=== PATIENT | male | born 1955 | race Caucasian/White ===

== ENCOUNTER 2017-09-23 11:51 | Day surgery (SDC) | payer OTHER ==
[~2017-09-23] VITALS: Ht 177.8 cm; Wt 88.6 kg
--- NOTE | ~2017-09-23 | OP ---
PATIENT NAME: MORIAH NGUYEN MEDICAL RECORD: [id number] :57 [facility] AD[facility] DATE: SURGEON: NIYAH CLEVELAND MD DATE OF OPERATION: 09/23/2017 REFERRING PHYSICIAN: Kt Pete MD INDICATIONS: Mr. Nguyen is a very pleasant 62-year-old gentleman, who has been having symptoms of diarrhea beginning in May 2017 and they have recently resolved. He had outpatient stool studies that were negative for salmonella, shigella, campylobacter, or E. coli. Recently, he had episode of black tarry stools followed by bright red blood per rectum and has likewise resolved. His hemoglobin today is 17.6, MCV is 89.8. He presents for outpatient EGD and colonoscopy. PREMEDICATIONS: Total IV anesthesia (propofol 250 mg) (history of coronary artery disease with coronary artery stent, congestive heart failure, obstructive sleep apnea). INSTRUMENT: Nextnav video gastroscope and Olympus video colonoscope. PROCEDURE AND FINDINGS: After receiving informed consent, Mr. Nguyen was first prepared for EGD. His posterior pharynx was anesthetized with Cetacaine spray, placed in left lateral decubitus position and sedated as per anesthesia. After achieving an adequate level of sedation, gastroscope was introduced per orally and advanced to the duodenum without difficulty. The esophageal mucosa was without erythema, ulcers, strictures, masses; appeared normal down the GE junction. A small hiatal hernia was present. Gastric mucosa was notable for mild prepyloric and antral erythema, and there were 4 small shallow punctate ulcers noted in the prepyloric and antral region of the stomach (nonhemorrhagic) and antral biopsies were obtained to rule out Helicobacter pylori. No lesions were seen in the body of the stomach along the incisura, in the cardia, or fundus. Pylorus was patent and competent. Duodenal mucosa was without erythema or ulcers, appeared normal through the second portion. Gastroscope was then withdrawn. He was prepared for colonoscopy. Digital rectal exam was performed that showed no external hemorrhoidal tags, fissures, or fistulas. Normal sphincter tone. No palpable rectal masses. Colonoscope was introduced per rectally and advanced to the cecum without difficulty. The cecum, IC valve, and appendiceal orifice were identified and appeared normal. The terminal ileum was intubated. The distal small bowel mucosa was without erythema or ulcers. There was minimal patchy erythema noted in the proximal ascending colon (likely prep related). Biopsies were taken from the ascending colon to rule out microscopic colitis. Small diverticula were noted scattered throughout the sigmoid colon (mild to moderate). Retroflexion in rectum showed no internal hemorrhoids. A small amount of liquid stool was aspirated during the procedure and sent for study. A good prep was present. Mr. Nguyen tolerated the procedure well. No immediate complications. Withdrawal time in the colon was 14 minutes. ASSESSMENT: 1. Small hiatal hernia. 2. Mild gastritis. 3. Small antral ulcers, nonhemorrhagic. 4. Gkbw-mx-brfgvzid sigmoid diverticulosis coli. OPERATIVE REPORT [id number] MORIAH NGUYEN 5. Minimal nonspecific erythema involving the proximal ascending colon, likely prep related. Biopsied to rule out microscopic colitis. 6. Normal mucosa in the terminal ileum. 7. Diarrhea resolved. 8. Recent history of gastrointestinal bleeding may have been secondary to antral ulcers versus a diverticular bleed. RECOMMENDATIONS: 1. Follow up histopathology. 2. Avoid nonsteroidal anti-inflammatory drugs. 3. Protonix 40 mg p.o. daily. 4. Screening colonoscopy in 5 years. TRANSINT:[id number] Voice Confirmation ID: [id number] DOCUMENT ID: [id number] NIYAH CLEVELAND MD at 1234 CC: KT PETE MD [id number] DICTATION DATE: 09/23/17 1428 DEMURRAGE AGENT: 09/23/17 1459 [facility] 09/23/17 [place] [id number]
[2017-09-23] MEDS ORDERED: TOPROL XL50 MG PO (12:19)
[2017-09-23] MEDS ORDERED: ISOSORBIDE DINI20 MG PO (12:20)
[2017-09-23] MEDS ORDERED: MULTAQ400 MG PO (12:20)
[2017-09-23] MEDS ORDERED: HYDRALAZINE HCL50 MG PO (12:20)
[2017-09-23] MEDS ORDERED: FUROSEMIDE20 MG PO (12:21)
[2017-09-23] MEDS ORDERED: NITROQUICK0.4 MG SL (12:21)
[2017-09-23] MEDS ORDERED: ZOCOR40 MG PO (12:21)
[2017-09-23 12:32] VITALS: BP 187/111; Ht 177.8 cm; Wt 88.6 kg
[2017-09-23 13:23] LABS: ANION GAP 15.6 mmol/L (8-16); CALCIUM 8.9 mg/dL (8.5-10.1); CARBON DIOXIDE 26.5 mmol/L (21.0-32.0); CREATININE - SERUM 1.5 mg/dL (0.6-1.3); POTASSIUM - SERUM 4.1 mmol/L (3.5-5.1)
[2017-09-23 13:29] LABS: HEMOGLOBIN 17.6 g/dL (13.5-17.5); MCH 31.6 pg (26.0-34.0); MCHC 35.2 g/dL (31.0-37.0); MCV 89.8 fL (80.0-100.0); MEAN PLATELET VOLUME 11.4 fL (7.4-10.4); RBC 5.57 10x6/uL (4.20-6.10); RDW 12.5 % (11.5-14.5)
== END 2017-09-23 15:40 | disposition home or self-care (01) ==
LOC: D.OPS 11:51
PROVIDERS: Anesthesiology
DX: R19.7 Diarrhea, unspecified (principal); I25.10 Atherosclerotic heart disease of native coronary artery without angina pectoris; I10 Essential (primary) hypertension; I50.9 Heart failure, unspecified; I48.91 Unspecified atrial fibrillation; G47.30 Sleep apnea, unspecified; Z95.1 Presence of aortocoronary bypass graft; K21.9 Gastro-esophageal reflux disease without esophagitis; K44.9 Diaphragmatic hernia without obstruction or gangrene; K29.70 Gastritis, unspecified, without bleeding; K25.9 Gastric ulcer, unspecified as acute or chronic, without hemorrhage or perforation; Z01.812 Encounter for preprocedural laboratory examination

== ENCOUNTER 2020-02-19 10:11 | Day surgery (SDC) | payer OTHER ==
[~2020-02-19] VITALS: Ht 177.8 cm; Wt 90.0 kg
[~2020-02-19 10:11] MED LIST: FUROSEMIDE20 MG PO; HYDRALAZINE HCL50 MG PO; ISOSORBIDE DINI20 MG PO; MULTAQ400 MG PO; NITROQUICK0.4 MG SL; TOPROL XL50 MG PO; ZOCOR40 MG PO
[2020-02-19] MEDS ORDERED: NORVASC5 MG PO (10:47)
[2020-02-19] MEDS ORDERED: COUMADIN2.5 MG (10:48)
[2020-02-19] MEDS ORDERED: BAYER CHEWABLE81 MG PO (10:48)
[2020-02-19 11:03] LABS: BASOPHILS 0.3 % (0-2); EOSINOPHILS 0.8 % (0-7); HEMATOCRIT 53.9 % (42.0-54.0); HEMOGLOBIN 18.1 g/dL (13.5-17.5); IMMATURE GRANULOCYTES 0.1 % (0-5); LYMPHOCYTES 26.1 % (15-50); MCH 31.1 pg (26.0-34.0); MCHC 33.6 g/dL (31.0-37.0); MCV 92.6 fL (80.0-100.0); MEAN PLATELET VOLUME 9.8 fL (7.4-10.4); MONOCYTES 8.7 % (2-11); PLATELET COUNT 229 10x3/uL (130-400); RBC 5.82 10x6/uL (4.20-6.10); RDW 13.4 % (11.5-14.5); WBC 8.8 10x3/uL (4.8-10.8)
[2020-02-19] MEDS ORDERED: LASIX40 MG PO (11:12)
[2020-02-19 11:25] VITALS: Ht 177.8 cm; Wt 90.0 kg
[2020-02-19 12:36] LABS: INR 2.03 (0.85-1.17); PROTIME 22.7 SECONDS (11.6-15.0)
--- NOTE | 2020-02-19 14:14 | NUR ---
DISCHARGE INSTRUCTIONS PROVIDED, IV REMOVED WITH TIP INTACT. WHEELED OUT TO .
--- NOTE | 2020-02-20 07:12 | OP ---
PATIENT NAME: MORIAH NGUYEN MEDICAL RECORD: [id number] :59 LOCATION:[facility] ADMISSION DATE: SURGEON: YASIR SYLVESTER DO DATE OF OPERATION: 02/19/2020 PROCEDURE: EGD. INDICATIONS: History of Coles esophagus. SCOPE: Olympus video gastroscope. MEDICATIONS: Propofol 100 mg IV per anesthesia and clindamycin 600 mg IV prior to procedure start. COMPLICATIONS: None. FINDINGS: Informed consent was given. The patient was made comfortable with the above medication. After reaching an adequate level of sedation by slow IV push, the patient was placed on his left side. The endoscope was advanced under direct visualization through the mouth to the second portion of the duodenum with ease. The entire esophagus appeared normal down to the GE junction. At the GE junction, there were minor changes consistent with LA class A reflux-induced esophagitis and possible Coles's mucosa. If there is Coles's it would be short segment Coles's consisting of 0.5 to 1 cm max distance. No biopsies were taken on today's examination due to the patient's INR being elevated over 2 with his history of Coumadin use. There were no specific findings within his mucosa that was concerning for dysplasia or malignancy. The endoscope was advanced beyond GE junction into the stomach and retroflexed to view the cardia, where a small sliding hiatal hernia was present. The fundus and body of the stomach appeared normal. In the antrum and prepyloric region, there was some erythema and granularity consistent with mild chronic gastritis. The endoscope was advanced beyond the pylorus into the duodenum where there was again some erythema and granularity in the bulb. This cleared in the second portion of the duodenum. The endoscope was withdrawn from the patient. The patient tolerated the procedure well and there were no complications. IMPRESSION: 1. LA class A reflux-induced esophagitis and possible Coles's mucosa at the gastroesophageal junction. 2. Mild gastritis in the antrum. 3. Mild duodenitis in the duodenal bulb. 4. Small sliding hiatal hernia. PLAN AND RECOMMENDATIONS: 1. Discharge home when recovery parameters are met. 2. GERD diet and reflux precautions. 3. Continue current medications. 4. Repeat EGD will be recommended within a 12 month time range due to the fact that no biopsies could be taken on today's examination. At that time an INR will need to be checked and consideration could be given to Lovenox bridging and holding the Coumadin longer prior to his next procedure. 5. Notify the GI clinic for any symptoms or change in symptoms. TRANSINT:[id number] Voice Confirmation ID: [id number] DOCUMENT ID: [id number] OPERATIVE REPORT [id number] MORIAH NGUYEN NATHAN A DO at 0712 CC: [id number] DICTATION DATE: 02/19/20 1303 MOTORCYCLE TECHNICIAN: 02/19/20 2356 [facility] 02/19/20 [place] [id number] [place] [address]
== END 2020-02-19 14:00 | disposition home or self-care (01) ==
LOC: D.OPS 10:11
PROVIDERS: Anesthesiology; ATTEND Internal Medicine Gastroenterology
DX: K22.70 Barrett's esophagus without dysplasia (principal)